=== PATIENT | male | born 1940 | race Caucasian/White ===

== ENCOUNTER 2017-02-05 17:44 | Inpatient (IN) ==
[2017-02-05] MEDS ORDERED: SALINE FLUSH 10ml SYRINGE IVF PRN (18:07)
[2017-02-05] MEDS ORDERED: IPRATROPIUM/ALBUTEROL 2.5mg-0.5mg/3ml NEB IH ONE (18:07)
[2017-02-05] MEDS ORDERED: AZITHROMYCIN IV 500 MG in NS 250ml 250 ML IV ONE (18:07)
[2017-02-05] MEDS ORDERED: METHYLPREDNISOLONE SOD SUCC 125mg/2ml INJECTION IVP ONE (18:07)
[2017-02-05] MEDS ORDERED: CEFTRIAXONE (ER USE ONLY) 1 GM in NS 100 ML IV ONE (18:07)
--- NOTE | 2017-02-05 18:57 | Emergency Department Report ---
SOB HPI - General Chief Complaint: Shortness of Breath/Dyspnea Stated Complaint: Cough, Not feeling well Time Seen by Provider: 02/05/17 18:07 Source: patient, family Mode of arrival: wheelchair Limitations: no limitations - History of Present Illness 77yo man with long-standing h/o COPD presents tonight with BROCK. Pt had a productive cough that started 5 days ago; had no dyspnea at that time. Sx have gotten progressively worse; pt now requiring O2 at base (usually only wears O2 at night). MD Complaint: shortness of breath, cough Onset (ago): day(s) (5) Severity: severe Consistency/Duration: constant Relieving factors: oxygen, rest Exacerbating factors: exertion, coughing Known history of: COPD Associated symptoms: cough, wheezing, sputum production, orthopnea Treatment prior to arrival: oxygen, bronchodilator - Related Data Home oxygen amount: 2 liters (At night) Home Medications Medication Instructions Recorded Confirmed Allopurinol 100 mg PO DAILY #0 12/24/14 02/05/17 Calcitriol 0.25 mcg PO DAILY #0 12/24/14 02/05/17 Ipratropium/Albuterol Sulfate 1 unit AEROSOL QID PRN #0 05/28/15 02/05/17 [Iprat-Albut 0.5-3(2.5) mg/3 ml] Amlodipine Besylate 5 mg PO DAILY #0 11/04/16 02/05/17 Metoprolol Tartrate 100 mg PO DAILY #0 11/04/16 02/05/17 Warfarin Sodium 3 mg PO SuTuThSa #0 11/04/16 02/05/17 Warfarin Sodium 4 mg PO MoWeFr #0 11/04/16 02/05/17 Budesonide [Budesonide] 0.5 mg INH BID 02/05/17 02/05/17 CALCIUM CARBONATE Chewable [Tums] 1 tab PO TIDWM 02/05/17 02/05/17 Cholecalciferol [Vitamin D-3] 1,000 unit PO DAILY 02/05/17 02/05/17 Guaifenesin/Dextromethorphan 1 dose OP PRN PRN 02/05/17 02/05/17 [Guaifenesin Dm Syrup] Allergies Allergy/AdvReac Type Severity Reaction Status Date / Time No Known Drug Allergies Allergy Unknown Verified 02/05/17 18:15 Review of Systems All systems: reviewed and negative except as stated Respiratory: Reports: as per HPI, cough (Productive), wheezes PFSH Patient Stated Medical History Hypertension Yes Other Cardiology Yes: DVT 2004 Chronic Obstructive Pulmonary Yes Disease (COPD) Hx Benign Prostatic Yes Hyperplasia Hx Incontinence Yes Hx Renal Disease Yes Clotting Problems Yes: Bruises easily Osteoarthritis Yes Gout COPD HTN Leukemia Course Course Narrative: Pt evaluated and treated for COPD exacerbation. Thought given to sepsis and atbx ordered, but does not meet criteria for sepsis. Acute on chronic renal failure found, along with new-onset a-fib with RVR. Contacted hospitalist to discuss local admission vs txfr to tertiary care center. Decision made to admit locally. Pt voiced understanding of dx, prognosis, and tx. - Consultations Consultation #1: Trever Landeros. Will admit locally. Time: 19:43 Vital Signs Temperature 100.7 F H 02/05/17 17:45 Pulse Rate 110 H 02/05/17 17:45 Respiratory Rate 28 H 02/05/17 17:45 Blood Pressure 132/69 02/05/17 17:45 Pulse Oximetry 89 L 02/05/17 17:45 Temperature 100.7 F H 02/05/17 17:45 Pulse Rate 110 H 02/05/17 17:45 Respiratory Rate 22 02/05/17 19:25 Blood Pressure 132/69 02/05/17 17:45 Pulse Oximetry 97 02/05/17 19:25 Procedures - ABG Interpretation ABG Interpretation 1 Interpretation: respiratory acidosis (compensated) Shortness of Breath/Dyspnea - MDM Narrative Medical decision making narrative: Pt with COPD exacerbation, increased O2 requirement, A on CRF, new-onset A-fib with RVR. Discussed local admission vs txfr with hospitalist. Since dx's are not remarkably diff from baseline, will admit locally. - Differential Diagnosis Likely: acute exacerbation of chronic obstructive airways disease, congestive heart failure, community acquired pneumonia, asthma with exacerbation - Medical Records Attestation: I reviewed the patient's medical records. - Lab Data Attestation: I reviewed the patient's lab results. Result diagrams: 02/05/17 18:34 02/05/17 18:34 Lab Results 02/05/17 02/05/17 02/05/17 Range/Units 18:30 18:34 18:34 WBC 16.0 H (4.5-11.0) T/MM3 RBC 3.64 L (4.50-5.90) M/MM3 Hgb 10.5 L (13.5-17.5) GM/DL Hct 34.7 L (41-53) % MCV 95.3 (80-100) UM3 MCH 28.8 (26-34) UUG MCHC 30.3 L (31-37) GM/DL RDW Std Deviation 79.0 H (36.9-50.2) FL Plt Count 167 (130-400) T/MM3 MPV 10.5 (9.4-12.4) UM3 Immature Gran % (Auto) Not performed Neut % (Auto) Not performed Lymph % (Auto) Not performed George % (Auto) Not performed Eos % (Auto) Not performed Baso % (Auto) Not performed Neut # Not performed Lymph # Not performed George # Not performed Baso # Not performed Abs Immat Gran (auto) Not performed Neutrophils % (Manual) 76.0 H (33-66) % Band Neutrophils % 4.0 (0-6) % Lymphocytes % (Manual) 13.0 L (23-45) % Reactive Lymphs % 3.0 H (0-0) % Monocytes % (Manual) 4.0 (0-9.0) % Neutrophils # (Manual) 12.2 H (1.8-7.7) T/MM3 Band Neutrophils # 0.6 T/MM3 Lymphocytes # (Manual) 2.1 (1-4.8) T/MM3 Abs React Lymphs (Man) 0.5 H (0-0) T/MM3 Monocytes # (Manual) 0.6 (0-0.8) T/MM3 RBC Morph Comment 2+ anisocytosis INR (0.99-1.21) APTT (24-36) SEC Specimen Type Cancelled ABG pH Cancelled ABG pCO2 Cancelled ABG pO2 Cancelled ABG HCO3 Cancelled ABG Total CO2 Cancelled ABG O2 Saturation Cancelled ABG Base Excess Cancelled O2 Delivery Method Cancelled Vent Rate Cancelled FiO2 % Cancelled FiO2 (liters per min) Cancelled PEEP Cancelled Inspiratory Pressure Cancelled Pressure Support Cancelled Turbidity 20 (0-20) Sodium 146 H (134-144) MEQ/L Potassium 4.2 (3.6-5) MEQ/L Chloride 103 (98-107) MEQ/L Carbon Dioxide 27 (22-30) MEQ/L Anion Gap 16 H (5-15) MEQ/L BUN 80.0 H* (9-20) MG/DL Creatinine 5.4 H (0.8-1.5) MG/DL GFR Calculation 10 BUN/Creatinine Ratio 15 (6-26) RATIO Glucose 204 H (75-110) MG/DL Calculated Osmolality 311 H (261-280) MOSM/KG Calcium 10.0 (8.4-10.2) MG/DL Icterus Index 2 (0-7) Troponin I < 0.012 (0-0.12) ng/ml B-Natriuretic Peptide 2380 H (0-175) pg/mL Plasma Lactate 1.0 (0.6-2.2) MMOL/L Specimen Hemolysis 15 (0-25) Ur Collection Type Urine Color (YELLOW) Urine Clarity Urine pH (5.0-8.0) Ur Specific [place] (1.015-1.025) Urine Protein (NEGATIVE) Urine Glucose (UA) (NEGATIVE) Urine Ketones (NEGATIVE) Urine Occult Blood (NEGATIVE) Urine Nitrate (NEGATIVE) Urine Bilirubin (NEGATIVE) Urine Urobilinogen (NORMAL) EU/DL Ur Leukocyte Esterase (NEGATIVE) Urine RBC (0-3) /HPF Urine WBC (0-5) /HPF Urine Bacteria (NEGATIVE) Ur Culture Indicated? Urinalysis Comment 02/05/17 02/05/17 02/05/17 Range/Units 18:40 18:49 18:54 WBC (4.5-11.0) T/MM3 RBC (4.50-5.90) M/MM3 Hgb (13.5-17.5) GM/DL Hct (41-53) % MCV (80-100) UM3 MCH (26-34) UUG MCHC (31-37) GM/DL RDW Std Deviation (36.9-50.2) FL Plt Count (130-400) T/MM3 MPV (9.4-12.4) UM3 Immature Gran % (Auto) Neut % (Auto) Lymph % (Auto) George % (Auto) Eos % (Auto) Baso % (Auto) Neut # Lymph # George # Baso # Abs Immat Gran (auto) Neutrophils % (Manual) (33-66) % Band Neutrophils % (0-6) % Lymphocytes % (Manual) (23-45) % Reactive Lymphs % (0-0) % Monocytes % (Manual) (0-9.0) % Neutrophils # (Manual) (1.8-7.7) T/MM3 Band Neutrophils # T/MM3 Lymphocytes # (Manual) (1-4.8) T/MM3 Abs React Lymphs (Man) (0-0) T/MM3 Monocytes # (Manual) (0-0.8) T/MM3 RBC Morph Comment INR 3.60 H (0.99-1.21) APTT 41.8 H (24-36) SEC Specimen Type ABG pH 7.310 L ABG pCO2 60 H* ABG pO2 62 L ABG HCO3 30 H ABG Total CO2 32.0 H ABG O2 Saturation 89.0 L ABG Base Excess 2.6 H O2 Delivery Method Nasal cannula, liter Vent Rate FiO2 % FiO2 (liters per min) 4 PEEP Inspiratory Pressure Pressure Support Turbidity (0-20) Sodium (134-144) MEQ/L Potassium (3.6-5) MEQ/L Chloride (98-107) MEQ/L Carbon Dioxide (22-30) MEQ/L Anion Gap (5-15) MEQ/L BUN (9-20) MG/DL Creatinine (0.8-1.5) MG/DL GFR Calculation BUN/Creatinine Ratio (6-26) RATIO Glucose (75-110) MG/DL Calculated Osmolality (261-280) MOSM/KG Calcium (8.4-10.2) MG/DL Icterus Index (0-7) Troponin I (0-0.12) ng/ml B-Natriuretic Peptide (0-175) pg/mL Plasma Lactate (0.6-2.2) MMOL/L Specimen Hemolysis (0-25) Ur Collection Type Urine, clean catch Urine Color Yellow (YELLOW) Urine Clarity Sl cloudy Urine pH 5.5 (5.0-8.0) Ur Specific [place] 1.020 (1.015-1.025) Urine Protein 3+ A (NEGATIVE) Urine Glucose (UA) 1+ A (NEGATIVE) Urine Ketones Negative (NEGATIVE) Urine Occult Blood 1+ A (NEGATIVE) Urine Nitrate Negative (NEGATIVE) Urine Bilirubin Negative (NEGATIVE) Urine Urobilinogen 0.2 (NORMAL) EU/DL Ur Leukocyte Esterase Negative (NEGATIVE) Urine RBC 0-1 (0-3) /HPF Urine WBC 0-1 (0-5) /HPF Urine Bacteria Trace H (NEGATIVE) Ur Culture Indicated? Cancelled Urinalysis Comment Cancelled - Radiology Data Attestation: I reviewed the patient's radiology results. CXR: Pulm effusion and congestion. - ECG Data Tracing #1 I reviewed this ECG and interpreted as documented below: Arrhythmias present: afib Critical Care Time Critical Care Time: Yes (35) Total Critical Care Time: 35 Attestation: 35 min of critical care time assigned to this case due to its urgency, complexity of decision making, need for continued patient re-evaluation, or resources devoted to stabilizing the patient. Disposition Clinical Impression: COPD exacerbation, New onset a-fib Acute on chronic renal failure Qualifiers: Acute renal failure type: unspecified Chronic kidney disease stage: stage 5, not on chronic dialysis Qualified Code(s): N17.9 - Acute kidney failure, unspecified; N18.5 - Chronic kidney disease, stage 5 [place]: 02 [place] [facility] [place] Condition: Improved Prescriptions: No Action Allopurinol 100 mg PO DAILY #0 Calcitriol 0.25 mcg PO DAILY #0 Metoprolol Tartrate 100 mg PO DAILY #0 CALCIUM CARBONATE Chewable [Tums] 1 tab PO TIDWM Ipratropium/Albuterol Sulfate [Iprat-Albut 0.5-3(2.5) mg/3 ml] 1 unit AEROSOL QID PRN #0 PRN Reason: PRN ORDERS Amlodipine Besylate 5 mg PO DAILY #0 Warfarin Sodium 3 mg PO SuTuThSa #0 Warfarin Sodium 4 mg PO MoWeFr #0 Cholecalciferol [Vitamin D-3] 1,000 unit PO DAILY Budesonide [Budesonide] 0.5 mg INH BID Guaifenesin/Dextromethorphan [Guaifenesin Dm Syrup] 1 dose OP PRN PRN PRN Reason: Cough Referrals: Parvez Guillermo MD [Primary Care Provider] - Trinidad Peoples APRN [Advanced Practice Nurse] - Time of Disposition: 19:53 - Seen By: physician
[2017-02-05] MEDS ORDERED: IPRATROPIUM/ALBUTEROL 2.5mg-0.5mg/3ml NEB AEROSOL ONE (18:59)
[2017-02-05] MEDS ORDERED: ONDANSETRON 4 MG/2 ML INJECTION IVP PRN (19:50)
[2017-02-05] MEDS ORDERED: CEFTRIAXONE 1 G in NS 100 ML IV SCH (21:15)
--- NOTE | 2017-02-05 21:23 | History & Physical Report ---
History of Present Illness Date: Chief complaint: cough and SOB HPI: Mr. 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 Todya fever and chills with no GI complaints and able to take medications. Has chronic hypoxic resp failure with 2.5L O2 at hs but today with SpO2 83-85% on RA in ED. Feels better on O2. No other pain currently. Review of Systems Review of systems: 10+ systems reviewed and negative aside from in HPI PFSH Patient Stated Medical History Hypertension Yes Other Cardiology Yes: DVT 2004 Chronic Obstructive Pulmonary Yes Disease (COPD) Pneumonia Yes Pulmonary Embolism Yes Diabetes Mellitus Type 2 Yes Hx Benign Prostatic Yes Hyperplasia Hx Renal Disease Yes Clotting Problems Yes: Bruises easily due to Coumadin Osteoarthritis Yes: Right Hip Clostridium Difficile Yes Shingles Yes Family History: mother at 88 after CVA, father from old age at 94 Smoking status: Former smoker Medications Home Medications Medication Instructions Recorded Confirmed Type Allopurinol 100 mg PO DAILY #0 12/24/14 02/05/17 History Calcitriol 0.25 mcg PO DAILY #0 12/24/14 02/05/17 History Ipratropium/Albuterol Sulfate 1 unit AEROSOL QID PRN #0 05/28/15 02/05/17 History [Iprat-Albut 0.5-3(2.5) mg/3 ml] Amlodipine Besylate 5 mg PO DAILY #0 11/04/16 02/05/17 History Metoprolol Tartrate 100 mg PO DAILY #0 11/04/16 02/05/17 History Warfarin Sodium 3 mg PO SuTuThSa #0 11/04/16 02/05/17 History Warfarin Sodium 4 mg PO MoWeFr #0 11/04/16 02/05/17 History Budesonide [Budesonide] 0.5 mg INH BID 02/05/17 02/05/17 History CALCIUM CARBONATE Chewable [Tums] 1 tab PO TIDWM 02/05/17 02/05/17 History Cholecalciferol [Vitamin D-3] 1,000 unit PO DAILY 02/05/17 02/05/17 History Guaifenesin/Dextromethorphan 1 dose OP PRN PRN 02/05/17 02/05/17 History [Guaifenesin Dm Syrup] Allergies Allergy/AdvReac Type Severity Reaction Status Date / Time No Known Drug Allergies Allergy Unknown Verified 02/05/17 18:15 Exam Vital Signs: Temp Pulse Resp BP Pulse Ox 100.7 F H 110 H 22 132/69 97 02/05/17 17:45 02/05/17 17:45 02/05/17 19:25 02/05/17 17:45 02/05/17 19:25 Telemetry Rhythm: Sinus Rhythm Height: 1.73 m Weight: 55.7 kg Body Mass Index: 18.6 - Constitutional Present: mild distress - Routine HEENT Exam Head: Present: normocephalic, atraumatic Eye: Present: EOMI - Routine Neck Exam Absent: JVD - Routine Respiratory Exam Present: decreased breath sounds, prolonged expiratory phase, rhonchi, diminished air movement - Routine Cardiovascular Exam Present: RRR, S1, S2, no murmur - Routine Abdominal Exam Present: soft, normoactive bowel sounds. Absent: tenderness, guarding - Routine Extremities Exam Absent: cyanosis, clubbing - Routine Neurological Exam Present: alert, oriented X3 - Routine Psychiatric Exam Present: normal affect, normal thought process Results - Labs CBC & Chem 7: 02/05/17 18:34 02/05/17 18:34 Assessment and Plan (1) Acute on chronic renal failure Current visit: Yes Status: Acute AECOPD with full acute inpatient admit indicated. Solumedrol, duonebs scheduled and prn albuterol with O2 with parameters. Bicarb 27 but pCO2 60 and pH 7.31. Repeat vbg in the AM and CCU status (2) COPD exacerbation Current visit: Yes Status: Acute see above (3) Acute bronchiolitis Current visit: Yes Status: Acute (4) Acute bronchiolitis Current visit: Yes Status: Acute rocephin and sputum cx, monitor (5) CKD (chronic kidney disease) Current visit: Yes Status: Acute 1/2NS overnight as hypernatremia as well, and repeat AM labs. Amanda. Hospital Course Summary Disclaimer: The visit summary below is not to be considered part of the above Progress Note.
[2017-02-05] MEDS ORDERED: OXYCODONE/APAP 5 MG/325 MG TABLET PO PRN (21:29)
[2017-02-05] MEDS: 1/2 NS 1,000 ML IV SCH (22:00)
[2017-02-06] MEDS: METHYLPREDNISOLONE SOD SUCC 125mg/2ml INJECTION IVP SCH ×2 (03:06→08:44)
[2017-02-06] MEDS ORDERED: GUAIFENESIN/CODEINE 5ml ORAL LIQUID PO PRN (04:01)
--- NOTE | 2017-02-06 07:26 | XRay Report ---
INDICATION: Dyspnea PROCEDURE: CHEST 2-VIEWS UPRIGHT (PA & LAT) Encounter: Initial COMPARISON: November 04, 2016 FINDINGS: Lungs are stable in appearance with increased interstitial markings and small right pleural effusion versus pleural thickening. Surgical change of the right upper lobe again noted. No pneumothorax. Heart size and mediastinal contours are stable. Degenerative change in the thoracolumbar spine. IVC filter noted. Impression: Overall stable appearance of the chest with chronic interstitial prominence and small right pleural effusion versus pleural thickening. .
[2017-02-06] MEDS: 1/2 NS 1,000 ML IV SCH ×2 (07:47→17:51)
[2017-02-06] MEDS ORDERED: Pharmacy Consult for Fall Risk MC PRN (08:56)
[2017-02-06] MEDS ORDERED: CEFTRIAXONE 1 G in NS 100 ML IV SCH (09:00)
[2017-02-06] MEDS: ENOXAPARIN 30 MG/0.3 ML INJECTION SQ SCH (09:10)
--- NOTE | 2017-02-06 10:23 | Progress Note ---
Subjective: Pt reports doing better this am. Sob is better but sputum production is still present. Denies any cp, n/v/d, f/c. Objective Vital signs: Temp Pulse Resp BP Pulse Ox 97.5 F 76 26 H 126/58 96 02/06/17 04:00 02/06/17 04:00 02/06/17 04:00 02/06/17 04:00 02/06/17 04:00 Weight: 57.5 kg - Constitutional Present: well nourished, well developed. Absent: no acute distress - Routine HEENT Exam Head: Present: atraumatic Eye: Present: EOMI. Absent: scleral injection ENT: Present: mucous membranes moist - Routine Respiratory Exam Present: decreased breath sounds. Absent: respiratory distress, wheezes - Routine Cardiovascular Exam Present: RRR, no murmur - Routine Abdominal Exam Present: soft, non tender - Routine Skin Exam Present: intact, dry - Routine Neurological Exam Present: alert, oriented X3 Results - Labs CBC & Chem 7: 02/06/17 04:43 02/06/17 04:43 Labs: Short CBC 02/06/17 Range/Units 04:43 WBC 13.8 H (4.5-11.0) T/MM3 Hgb 9.5 L (13.5-17.5) GM/DL Hct 32.1 L (41-53) % Plt Count 149 (130-400) T/MM3 [facility] [place] 02/06/17 04:43 Sodium 144 Potassium 4.1 Chloride 107 Carbon Dioxide 23 BUN 78.0 H* Creatinine 5.3 H Glucose 171 H Calcium 9.4 - ABG Interpretation ABG results: 02/06/17 04:43 VBG pH 7.310 VBG pCO2 48 VBG pO2 93 H VBG HCO3 24 VBG Total CO2 25.7 VBG O2 Saturation 96.0 VBG Base Excess -2.4 L Assessment and Plan (1) COPD exacerbation Current visit: Yes Status: Acute (2) Acute on chronic renal failure Current visit: Yes Status: Acute (3) Acute bronchiolitis Current visit: Yes Status: Acute (4) Acute bronchiolitis Current visit: Yes Status: Acute (5) CKD (chronic kidney disease) Current visit: Yes Status: Acute Assessment and Plan: COPD Exacerbation -Likely 2/2 viral illness -CXR does not show any infiltrate -Tx-->Prednisone 40mg D2/5, change abx to levaquin 750 PO D2, RCAT -Check viral panel, blood cx's NGTD, sputum cx's NGTD CKD -Cr 5.4-->5.3 -Seems stable as compared to Cr in November -Monitor Sepsis Assessment - Evaluation Sepsis screening result: Severe Sepsis Risk - Focused Exam Vital Signs Temp Pulse Resp BP Pulse Ox 02/06/17 04:00 97.5 F 76 26 H 126/58 96 02/06/17 00:00 98.5 F 87 21 111/59 98 02/05/17 22:59 99.8 F Respiratory exam: Present: decreased breath sounds, prolonged expiratory phase, rhonchi, diminished air movement Cardiovascular exam: Present: RRR, S1, S2, no murmur Hospital Course Summary Disclaimer: The visit summary below is not to be considered part of the above Progress Note. Hospital Course: 02/06/17 Pt admitted by telemedicine team overnight for COPD exacerbation likely 2/2 URI , currently improved with abx, steroids and RCAT, will transfer out of icu.
[2017-02-06] MEDS: INSULIN ASPART 100unit/ml INJECTION SQ PRN (11:31)
--- NOTE | 2017-02-06 14:41 | Pharmacy Consult- Renal Dosing ---
Nyla Squires-Renal Dosing - Laboratory Information 02/06/17 04:43 BUN 78.0 H* Creatinine 5.3 H - Consult Information RENAL CONSULT We will adjust levofloxacin to 750mg po one time today a 1500 then 500mg po q48h. we will also continue enoxaparin 30mg sq daily. Thanks
[2017-02-06] MEDS ORDERED: LEVOFLOXACIN 750 MG TABLET PO ONE (14:45)
[2017-02-06] MEDS: IPRATROPIUM/ALBUTEROL 2.5mg-0.5mg/3ml NEB IH SCH ×2 (16:52→20:45)
[2017-02-07] MEDS: 1/2 NS 1,000 ML IV SCH (03:55)
[2017-02-07] MEDS: INSULIN ASPART 100unit/ml INJECTION SQ PRN ×2 (06:20→12:44)
[2017-02-07] MEDS: IPRATROPIUM/ALBUTEROL 2.5mg-0.5mg/3ml NEB IH SCH (07:52)
[2017-02-07] MEDS ORDERED: PredniSONE 20 MG TABLET PO SCH (08:00)
[2017-02-07] MEDS: ENOXAPARIN 30 MG/0.3 ML INJECTION SQ SCH (08:21)
[2017-02-07] MEDS ORDERED: METOPROLOL SUCCINATE (XL) 100mg TABLET PO SCH (10:45)
[2017-02-07] MEDS ORDERED: ALLOPURINOL 100 MG TABLET PO SCH (10:45)
[2017-02-07] MEDS ORDERED: CALCIUM CARBONATE Chewable 500mg TABLET PO SCH (12:00)
--- NOTE | 2017-02-07 13:42 | Discharge Summary ---
Discharge Information Date of admission: 02/05/17 20:00 Anticipated date of discharge: 02/07/17 Attending Physician: Gabino Drake MD Primary care physician: Parvez Guillermo MD Consults: 02/07/17 Pharmacy Consult [CONS] Routine Pharmacy Consult: Coumadin/Warfarin - Discharge Diagnosis (1) COPD exacerbation Status: Acute (2) Acute on chronic renal failure Qualifiers: Acute renal failure type: unspecified Chronic kidney disease stage: stage 5 , not on chronic dialysis Qualified Code(s): N17.9 - Acute kidney failure, unspecified; N18.5 - Chronic kidney disease, stage 5 Status: Chronic (3) Acute bronchiolitis Status: Acute (4) CKD (chronic kidney disease) Status: Acute - Procedures Procedures: Procedures Transfusion of Nonautologous Frozen Plasma into Peripheral Vein, Percutaneous Approach (09/02/16) - Laboratory Labs: 02/07/17 04:29 02/07/17 04:29 History of Present Illness HPI: Mr. 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 Todya fever and chills with no GI complaints and able to take medications. Has chronic hypoxic resp failure with 2.5L O2 at hs but today with SpO2 83-85% on RA in ED. Feels better on O2. No other pain currently. Hospital Course Hospital course: 02/06/17 Pt admitted by telemedicine team overnight for COPD exacerbation. Etiology was thought to be URI but viral panel was negative. CXR did not show any acute changes. Pt was treated with prednisone, levaquin and RCAT and he felt much better. Pt has CKD with baseline Cr ~5, Cr at discharge was 4.8. Will plan on sending pt out on 2 additional days of levaquin and prednisone to complete 5 day tx. Pt's INR on admission was 3.6 then 5.08 then 4.96. Levaquin can increase INR but it was started after the elevated INR value had already been drawn. Since pt has responded well to tx, will keep abx the same and monitor INRs at home with home health. Instructed pt to hold coumadin at home until 's office (manages coumadin per pt) clears pt to resume warfarin. Discharge Plan: -Cont levaquin 500mg Q48Hr (adjusted for renal function) x1 dose -Cont. prednisone 40mg daily x 2 doses -Hold Coumadin and daily INR checks x3 days and results called to office for further management of coumadin Discharge Plan - Med Rec/Dispo Additional Instructions: Discharge Plan: -Cont levaquin 500mg Q48Hr (adjusted for renal function) x1 dose -Cont. prednisone 40mg daily x 2 doses -Hold Coumadin and daily INR checks x3 days and results called to office for further management of coumadin -F/u with PCP in 7 days Prescriptions: New Levofloxacin [Levaquin] 500 mg PO Q48H #1 tab PredniSONE [Deltasone] 40 mg PO WB #2 tab Continue Allopurinol 100 mg PO DAILY #0 Calcitriol 0.25 mcg PO DAILY #0 CALCIUM CARBONATE Chewable [Tums] 1 tab PO TIDWM Ipratropium/Albuterol Sulfate [Iprat-Albut 0.5-3(2.5) mg/3 ml] 1 unit AEROSOL QID PRN #0 PRN Reason: PRN ORDERS Amlodipine Besylate 5 mg PO DAILY #0 Cholecalciferol [Vitamin D-3] 1,000 unit PO DAILY Budesonide 0.5 mg INH BID Metoprolol Succinate 100 mg PO DAILY Discontinued Warfarin Sodium 3 mg PO SuTuThSa #0 Warfarin Sodium 4 mg PO MoWeFr #0 No Action Guaifenesin/Dextromethorphan [Guaifenesin Dm Syrup] 1 dose OP PRN PRN PRN Reason: Cough - Disposition 01 Discharged Home, Self-Care
[2017-02-07] MEDS ORDERED: BUDESONIDE INH.SOLN 0.5mg/2ml NEB IH SCH (21:00)
[2017-02-08] MEDS ORDERED: LEVOFLOXACIN 500 MG TABLET PO SCH (06:30)
[2017-02-08] MEDS ORDERED: CALCITRIOL 0.25 MCG CAPSULE PO SCH (09:00)
[2017-02-08] MEDS ORDERED: AMLODIPINE 5 MG TABLET PO SCH (09:00)
== END 2017-02-07 14:53 | disposition home health service (06) | DRG 191 ==
LOC: ED 17:44 → CCU 20:00 → MED 02-06 16:28
PROVIDERS: ADMIT Hospitalist; ATTEND Internal Medicine